=== PATIENT | male | born 1980 | race American Indian/Alaskan Native ===

== ENCOUNTER 2018-05-03 20:33 | Emergency (ER) | payer SELFPAY ==
[2018-05-03 20:39] VITALS: BP 155/96
[2018-05-04] MEDS ORDERED: MOTRIN PO ONE (00:58)
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
--- NOTE | 2018-05-04 02:28 | XRay Report ---
FINAL REPORT PROCEDURE: XR TIBIA FIBULA 2V LT TECHNIQUE: LEFT tibia and fibula radiographs, AP and lateral views. CPT 07448 HISTORY: left tib/fib pain COMPARISON: No prior studies are available for comparison. FINDINGS: Fracture (s) and/or Dislocation(s): None . Joint space(s): Normal . Soft tissues: Normal . Bone mineralization: Normal . Foreign bodies: None . IMPRESSION: Normal Examination.
== END 2018-05-04 03:30 | disposition home or self-care (01) ==
LOC: ED 20:33
DX: S86.112A Strain of other muscle(s) and tendon(s) of posterior muscle group at lower leg level, left leg, initial encounter (principal); I10 Essential (primary) hypertension; F17.200 Nicotine dependence, unspecified, uncomplicated; W18.39XA Other fall on same level, initial encounter; Y93.02 Activity, running; Y92.89 Other specified places as the place of occurrence of the external cause; Y99.8 Other external cause status

== ENCOUNTER 2019-06-15 18:22 | Emergency (ER) | payer SELFPAY ==
[2019-06-15] MEDS ORDERED: TYLENOL PO ONE (18:53)
[2019-06-15 19:58] LABS: Basophils % (Auto) 0.3 % (0.0-1.8); Eosinophils % (Auto) 0.1 % (0.0-4.3); Hematocrit 40.2 % (35.5-45.6); Hemoglobin 13.6 gm/dl (11.8-15.2); Lymphocytes # (Auto) 1.1 K/mm3 (1.2-5.4); Lymphocytes % (Auto) 11.3 % (13.4-35.0); Mean Corpuscular HGB Conc 34 % (32-34); Mean Corpuscular Volume 91 fl (84-94); Monocytes # (Auto) 0.8 K/mm3 (0.0-0.8); Monocytes % (Auto) 7.8 % (0.0-7.3); Platelet Count 211 K/mm3 (140-440); Red Blood Count 4.41 M/mm3 (3.65-5.03); Red Cell Distribution Width 13.7 % (13.2-15.2)
[2019-06-15] MEDS ORDERED: ZOFRAN IV ONE (20:34)
[2019-06-15] MEDS ORDERED: NACL 0.9% 1000 ML 1,000 ML IV ONE (20:34)
[2019-06-15] MEDS ORDERED: TORADOL IV ONE (20:34)
[2019-06-15] MEDS ORDERED: PEPCID IV ONE (20:35)
[2019-06-15 20:52] LABS: Alanine Aminotransferase 60 units/L (7-56); Albumin 4.2 g/dL (3.9-5); BUN/Creatinine Ratio 9; Blood Urea Nitrogen 7 mg/dL (9-20); Calcium 9.3 mg/dL (8.4-10.2); Hemolysis Index 1
--- NOTE | 2019-06-15 20:59 | XRay Report ---
CHEST PA AND LATERAL VIEWS INDICATION: cough. COMPARISON: None FINDINGS: Support devices: None Heart: Normal Lungs/Pleura: No acute pulmonary or pleural findings. IMPRESSION: 1. No significant abnormality. Signer Name: Aj Stiles MD Signed: 06/15/2019 8:55 PM Workstation Name: [id number]
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
[2019-06-16 02:34] VITALS: BP 132/78
== END 2019-06-16 00:25 | disposition home or self-care (01) ==
LOC: ED 18:22
DX: J20.8 Acute bronchitis due to other specified organisms (principal); J06.9 Acute upper respiratory infection, unspecified; R11.2 Nausea with vomiting, unspecified
CPT/HCPCS: 36415; 71046; 80053; 83690; 84484; 85025; 96361; 96374; 96375; 99284; J1885; J2405; J7030